=== PATIENT | female | born 1995 | race African-American/Black ===

== ENCOUNTER 2017-07-20 12:14 | Emergency (ER) | payer SELFPAY ==
[~2017-07-20] VITALS: Ht 167.6 cm; Wt 59.1 kg
[2017-07-20] MEDS ORDERED: ONDA4TAB7 PO (12:55)
[2017-07-20] MEDS ORDERED: BUPIVACAINE HCL/PF 0.5% 10 ML VIAL INJ ONE (13:15)
[2017-07-20 13:45] LABS: ANION GAP 13 mmol/L (8-16); CALCIUM, TOTAL 8.5 mg/dL (8.8-10.5); CARBON DIOXIDE 20 mmol/L (22-29); CHLORIDE 103 mmol/L (98-107); CREATININE 0.61 mg/dL (0.60-1.30); GLOMERULAR FILTR. RATE CALC > 60 mL/min (>60); GLUCOSE,RANDOM 76 mg/dL (70-110); POTASSIUM 3.7 mmol/L (3.5-5.1); SODIUM SERUM 136 mmol/L (136-145); UREA NITROGEN, BLOOD 13 mg/dL (7-18)
[2017-07-20 14:05] VITALS: BP 121/70
== END 2017-07-20 14:15 | disposition home or self-care (01) ==
LOC: EMS 12:16
DX: R11.2 Nausea with vomiting, unspecified (principal); K08.89 Other specified disorders of teeth and supporting structures; F17.210 Nicotine dependence, cigarettes, uncomplicated; F12.10 Cannabis abuse, uncomplicated; Z79.899 Other long term (current) drug therapy
CPT/HCPCS: 36415; 64400; 80048; 99284; 99406; J3490

== ENCOUNTER 2017-09-16 14:05 | Emergency (ER) | payer SELFPAY ==
[~2017-09-16] VITALS: Ht 167.6 cm; Wt 59.1 kg
[~2017-09-16 14:05] MED LIST: ONDA4TAB7 PO
[2017-09-16 14:10] VITALS: BP 141/99
[2017-09-16] MEDS ORDERED: IBUPROFEN 800 MG TABLET PO ONE (15:00)
== END 2017-09-16 15:46 | disposition home or self-care (01) ==
LOC: EMS 14:06
DX: K04.7 Periapical abscess without sinus (principal); F12.90 Cannabis use, unspecified, uncomplicated; F17.210 Nicotine dependence, cigarettes, uncomplicated
CPT/HCPCS: 99283

== ENCOUNTER 2017-12-06 17:27 | Emergency (ER) | payer SELFPAY ==
[~2017-12-06] VITALS: Ht 165.1 cm; Wt 62.3 kg
[2017-12-06] MEDS ORDERED: ONDA4 PO (17:44)
[2017-12-06] MEDS ORDERED: NAPR250T4 PO (17:44)
[2017-12-06] MEDS ORDERED: IBUPROFEN 800 MG TABLET PO ONE (18:15)
[2017-12-06] MEDS ORDERED: POVIDONE-IODINE 10% 15 ML SOLUTION UD TP ONE (18:15)
[2017-12-06] MEDS ORDERED: LIDOCAINE 2%/EPI 1:200,000/PF 10 ML VIAL INJ ONE (18:15)
[2017-12-06 19:35] VITALS: BP 110/70
== END 2017-12-06 19:38 | disposition home or self-care (01) ==
LOC: EMS 17:28
DX: N75.0 Cyst of Bartholin's gland (principal); F12.90 Cannabis use, unspecified, uncomplicated; F17.210 Nicotine dependence, cigarettes, uncomplicated
CPT/HCPCS: 56420

== ENCOUNTER 2017-12-08 15:33 | Emergency (ER) | payer SELFPAY ==
[~2017-12-08] VITALS: Ht 165.1 cm; Wt 62.3 kg
[~2017-12-08 15:33] MED LIST changes: +NAPR250T4 PO; +ONDA4 PO; -ONDA4TAB7 PO
[2017-12-08] MEDS ORDERED: KETOROLAC TROMETHAMINE 30 MG/ML VIAL IM ONE (16:30)
[2017-12-08] MEDS ORDERED: POVIDONE-IODINE 10% 15 ML SOLUTION UD TP ONE (16:30)
[2017-12-08] MEDS ORDERED: CEPHALEXIN MONOHYDRATE 500 MG CAPSULE PO ONE (16:30)
[2017-12-08] MEDS ORDERED: DOXYCYCLINE HYCLATE 100 MG CAPSULE PO ONE (16:30)
[2017-12-08] MEDS ORDERED: LIDOCAINE 1% 10 ML VIAL INJ ONE (16:30)
[2017-12-08] MEDS ORDERED: HYDROCODONE/ACETAMINOPHEN 5-325 MG TABLET PO ONE (16:30)
[2017-12-08 17:02] VITALS: BP 111/70
== END 2017-12-08 17:09 | disposition home or self-care (01) ==
LOC: EMS 15:36
DX: N75.1 Abscess of Bartholin's gland (principal); N76.4 Abscess of vulva; F17.210 Nicotine dependence, cigarettes, uncomplicated; F12.90 Cannabis use, unspecified, uncomplicated; Z79.1 Long term (current) use of non-steroidal anti-inflammatories (NSAID); Z79.899 Other long term (current) drug therapy
CPT/HCPCS: 96372; 99284; 99406; J1885; J3490